=== PATIENT | female | born 1970 | race Caucasian/White ===

== ENCOUNTER 2018-05-14 14:46 | Observation (INO) ==
[2018-05-14] MEDS ORDERED: ASPIRIN 325 MG TABLET PO STA (15:09)
[2018-05-14] MEDS ORDERED: NITROGLYCERIN SL 0.4 MG TABLET SL PRN (15:09)
[2018-05-14 15:32] LABS: Basophils # 0.1 10*3/uL (0.0-0.2); Basophils % 0.7 % (0.0-0.8); Eosinophils # 0.1 10*3/uL (0.0-0.87); Eosinophils % 0.5 % (0.00-10.9); Hematocrit 39.7 VOL% (35.7-47.0); Hemoglobin 13.3 GM/DL (12.0-16.0); Immature Granulocytes % 0.2 %; Immature Granulocytes Absolute 0.02 #; Lymphocytes # 3.3 10*3/uL (1.4-4.0); Lymphocytes % 34.7 % (21.3-54.2); Mean Corpuscular HGB Conc 33.5 GM/DL (32-36); Mean Corpuscular Hemoglobin 30 PG (27-34); Mean Corpuscular Volume 89.6 FL (87-102); Mean Platelet Volume 8.5 FL (9.6-12.0); Monocytes # 0.6 10*3/uL (0.11-0.8); Monocytes % 5.9 % (1.7-12.7); Neutrophils # 5.6 10*3/uL (1.4-7.4); Platelet Count 323 T/CUMM (130-400); Red Blood Count 4.43 MC/CUMM (3.8-5.5); Red Cell Distribution Width 11.9 % (9.3-17.3); White Blood Count 9.6 T/CUMM (4-12)
[2018-05-14 15:57] LABS: Alanine Aminotransferase 22 U/L (13-56); Albumin 3.9 G/DL (3.4-5.0); Alkaline Phosphatase 66 U/L (45-117); Aspartate Amino Transferase 15 U/L (0-37); Bilirubin,Total < 0.39 MG/DL (0.2-1.0); Blood Urea Nitrogen 8 MG/DL (7-18); Calcium 8.8 MG/DL (8.5-10.1); Glucose 91 MG/DL (74-106); Osmolality,Calculated 276.4 MOS/KG (273-304); Potassium 3.5 MMOL/L (3.5-5.1); Sodium 140 MMOL/L (136-145); Total Protein 7.2 G/DL (6.4-8.3)
[2018-05-14 18:26] LABS: Risk Ratio 2.87; VLDL CHOLESTEROL 24.6 MG/DL
[2018-05-14] MEDS ORDERED: guaiFENesin/DM ER 600-30 MG TABLET PO SCH (21:00)
[2018-05-14] MEDS ORDERED: ZALEPLON 5 MG CAPSULE PO SCH (21:00)
[2018-05-14] MEDS ORDERED: ATORVASTATIN 10 MG TABLET PO SCH (21:00)
[2018-05-14] MEDS ORDERED: MAGNESIUM OXIDE 400 MG TABLET PO SCH (21:00)
[2018-05-15] MEDS ORDERED: ASPIRIN EC 325 MG TABLET PO SCH (09:00)
[2018-05-15] MEDS ORDERED: MULTIVITAMIN (BEROCCA) TABLET PO SCH (09:00)
[2018-05-15] MEDS ORDERED: LORATADINE/PSEUDOEPH 5-120 MG (12 HR) TABLET PO SCH (09:00)
[2018-05-15] MEDS ORDERED: MULTIVITAMIN (CENTRUM) TABLET PO SCH (09:00)
[2018-05-15] MEDS ORDERED: POTASSIUM CHLORIDE 10 MEQ TABLET PO SCH (09:00)
[2018-05-15 10:23] VITALS: BP 125/78
== END 2018-05-15 11:54 | disposition home or self-care (01) ==
LOC: N.EDINP 14:46 → N.ED 14:46 → N.EDINP 18:08 → N.4E 18:37
PROVIDERS: ADMIT Internal Medicine; ATTEND Internal Medicine